=== PATIENT | male | born 1955 | race Caucasian/White ===

== ENCOUNTER 2025-06-25 11:59 | Emergency (ER) | payer MEDICARE, SELFPAY ==
[2025-06-25 12:09] VITALS: BP 169/95; PULSE 82; RESP 16; TEMP 36.7; O2SAT 98
--- OUTSIDE RECORDS SUMMARY | 2025-06-25 12:23 | XMS_ITS | Clinical Summary ---
Author Organization [facility] Address [address] [place] [address] Phone Care Team Providers Care Naturopathic Doctor Name Role Phone Parth Contreras MD Primary Care Provider [phone] Allergies No known active allergies Social History Tobacco Use Types Packs/Day Years Used Date Smoking Tobacco: Every Day Cigarettes Smokeless Tobacco: Never Alcohol Use Standard Drinks/Week Comments Yes 0 (1 standard drink = 0.6 oz pur e alcohol) daily beer drinker Sex and Gender Information Value Date Recorded Sex Assigned at Not on file Legal Sex Male 8:01 PM CDT Gender Identity Not on file Sexual Orientation Not on file Last Filed Vital Signs Vital Sign Reading Time Taken Comments Blood Pressure 141/92 12/14/2019 7:52 PM DIANETICIST Pulse 103 12/14/2019 7:52 PM DIANETICIST Temperature 35.9 C (96.7 F) 12/14/2019 5:03 PM DIANETICIST Respiratory Rate 18 12/14/2019 7:52 PM DIANETICIST Oxygen Saturation 97% 12/14/2019 7:52 PM DIANETICIST Inhaled Oxygen Concentration - - Weight 113.4 kg (250 lb) 12/14/2019 5:03 PM DIANETICIST Height 182.9 cm (6') 12/14/2019 5:03 PM DIANETICIST Body Mass Index 33.91 12/14/2019 5:03 PM DIANETICIST Plan of Treatment Health Maintenance Due Date Last Done Comments Hepatitis C Virus (HCV) Screening 1955 TdaP Immunization 1955 Cologuard 2001 Colonoscopy 2001 Colorectal Cancer Screening 2001 Immunochemical Fecal Occult Blood 2001 Pneumococcal Immunization (5 0+ years) (1 of 1 - PCV) 2006 Zoster Immunization (1 of 2) 2006 SARS-COV-2 Immunization ( - 2023-25 season) 2024 Influenza Immunization (#1) 2025 Respiratory Syncytial Virus (RSV) Immunization (Adult) (1 - 1-dose 75+ series) 2031 Hepatitis B Immunization Aged Out No longer eligible based on patient's age to complete this topic Human Papillomavirus (HPV) Immunization Aged Out No longer eligible b ased on patient's age to complete this topic Meningococcal Immunization (ACWY) Aged Out No longer eligible based on patient's age to complete this topic Rotavirus Immunization Aged Out No lo nger eligible based on patient's age to complete [place] [address] [facility] Care Teams Naturopathic Doctor Relationship Specialty Start Date End Date [place] [address] PCP - General Internal Medicine 12/14/19
--- OUTSIDE RECORDS SUMMARY | 2025-06-25 12:23 | XMS_ITS | Clinical Summary ---
Author Organization [facility] Address [address] [place] [address] Care Team Providers Care Rim Technician Name Role Phone Unavailable Primary Care Provider Unavailabl e Source Comments [facility],non-owned Affiliates and Associated Physician Practices is amultiple site organization consisting of ambulatory clinics and hospital sitesin [place], [place], [place] and [place]. This disclosure is being madepursuant to the Care Everywhere program and may not contain all information available regarding this patient. Last updated 18.[facility] Allergies No known active allergies Medications * Be aware that medications may not be up to date on this document. Alwaysverify current medications with the patient. albuterol HFA (VENTOLIN HFA) 108 (90 BASE) MCG/ACT inhaler Inhale 2 Puffs by mouth every 6 hours as needed 1 Inhaler 5 11/10/2016 Active predniSONE (DELTASONE) 20 MG tablet Take 1 Tab by mouth 2 times daily 14 Tab 11/10/2016 Active Active Problems No known active problems Social History Tobacco Use Types Packs/Day Years Used Date Smoking Tobacco: Every Day Sex and Gender Information Value Date Recorded Sex Assigned at Not on file Legal Sex Male 7:28 AM OPERATION AGENT Gender Identity Not on file Sexual Orientation Not on file Last Filed Vital Signs Vital Sign Reading Time Taken Comments Blood Pressure 142/86 11/10/2016 7:50 AM OPERATION AGENT Pulse 77 11/10/2016 7:50 AM OPERATION AGENT Temperature 37.1 C (98.8 F) 11/10/2016 7:50 AM OPERATION AGENT Respiratory Rate 17 11/10/2016 7:50 AM OPERATION AGENT Oxygen Saturation 96% 11/10/2016 7:50 AM OPERATION AGENT Inhaled Oxygen Concentration - - Weight 113.4 kg (250 lb) 11/10/2016 7:50 AM OPERATION AGENT Height 182.9 cm (6') 11/10/2016 7:50 AM OPERATION AGENT Body Mass Index 33.91 11/10/2016 7:50 AM OPERATION AGENT Plan of Treatment Health Maintenance Due Date Last Done Comments COLOGUARD (AGES 45-75) - COL ON CA SCREENING 1956 COLON MONITORING 1956 COLONOSCOPY - COLON CA SCREENING 1956 CT COLONOGRAPHY - COLON CA SCREENING 1956 Colorectal Cancer Screening 1956 FIT - COLON CA SCREENING 1956 FLEX SIG - COLON CA SCREENING 1956 LIPID TESTING 1956 HEPATITIS C SCREENING 09/05/1974 DTAP/TDAP/TD VACCINES (1 - Tdap) 1975 PNEUMOCOCCAL VACCINE 50+ (1 of 1 - PCV) 2006 ZOSTER VACCINE (1 of 2) 2006 AAA SCREENING 2021 COVID-19 VACCINE (1 - 2023-2 5 season) 2024 DEPRESSION SCREENING 11/01/2024 INFLUENZA VACCINE (#1) 2025 Respiratory Syncytial Virus (RSV) Vaccine Pt: or over 60 yrs (1 - 1-dose 75+ series) 2031 HEPATITIS B VACCINE Aged Out No longe r eligible based on patient's age to complete this topic HIB VACCINE Aged Out No longer eligi ble based on patient's age to complete this topic HPV VACCINE Aged Out No longer eligi ble based on patient's age to complete this topic MENINGOCOCCAL (Group B) VACC INE SHARED DECISION-MAKING Aged Out No longer eligibl e based on patient's age to complete this topic MENINGOCOCCAL GROUPS A/C/Y/W VACCINE Aged Out No longer eligible b ased on patient's age to complete this topic Insurance COUNTS [facility]
--- OUTSIDE RECORDS SUMMARY | 2025-06-25 12:23 | XMS_ITS | Encounter Summary ---
Author Organization [facility] Address [address] [place] [address] Phone Care Team Providers Care Food And Nutrition Teacher Name Role Phone Parth Contreras MD Primary Care Provider [phone] Encounter Details Date Type Department Care Team (Late st Contact Info) Description 01/21/2018 Orders Only [facility] Provider, MD [facility] [place] [address] Social History Tobacco Use Types Packs/Day Years Used Date Smoking Tobacco: Every Day Cigarettes Smokeless Tobacco: Never Alcohol Use Standard Drinks/Week Comments Yes 0 (1 standard drink = 0.6 oz pur e alcohol) Sex and Gender Information Value Date Recorded Sex Assigned at Not on file Legal Sex Male 11:20 AM CASER UP Gender Identity Not on file Sexual Orientation Not on file documented as of this encounter Plan of Treatment Not on file documented as of this encounter Procedures Procedure Name Priority Date/Time Associated Diagnosis Comments SURGICAL PATHOLOGY 01/21/2018 12 :00 AM CDT documented in this encounter Results * SURGICAL PATHOLOGY (01/21/2018 12:00 AM CDT) Narrative 01/21/2018 12:00 AM CDT Ordered by an unspecified provider. Historical Provider LAB PATHOLOGY ORDERABLES Final Result documented in this encounter Visit Diagnoses Not on filedocumented in this encounter Additional Health Concerns Infection Onset Date Last Indicated Resolved Time COVID: Suspected 2020 2020 09/11/2020 6:31 AM CASER UP Respiratory Infection (PHYLLIS), contact + droplet Comment:Automatically added due to negative COVID-19 result. 09/11/2020 09/11/2020 09/25/2020 3:0 6 AM CASER UP COVID: Suspected 01/30/2025 01/30/2025 01/30/2025 10:51 AM CDT documented as of this encounter Care Teams Food And Nutrition Teacher Relationship Specialty Start Date End Date Parth Contreras MD [address] [place] [address] PCP - General Family Medicine 01/11/18 documented as of this encounter
--- OUTSIDE RECORDS SUMMARY | 2025-06-25 12:23 | XMS_ITS | Encounter Summary ---
Author Organization [facility] Address [address] [place] [id number] Care Team Providers Care Tonsorial Artist Name Role Phone Parth Contreras MD Primary Care Provider [phone] Reason for Visit * Reason Onset Date Comments Insect Bite 06/25/2025 Encounter Details Date Type Department Care Team (Late st Contact Info) Description 06/25/2025 Telephone [facility] [address] [facility] [place] [address] Parth Contreras MD [address] [place] [address] Insect Bite Social History Tobacco Use Types Packs/Day Years Used Date Smoking Tobacco: Former Cigarettes Smokeless Tobacco: Never Comments:Quite smoking appro x 2 weeks ago Alcohol Use Standard Drinks/Week Comments Yes 0 (1 standard drink = 0.6 oz pur e alcohol) occassional AUDIT-C Answer Date Recorded Q1: How often do you have a drink containing alc ohol? 2-4 times a month 03/20/2025 Q2: How many drinks containi ng alcohol do you have on a typical day when you are drinking? 5 or 6 03/20/2025 Q3: How often do you have si x or more drinks on one occasion? Monthly 03/20/2025 PHQ-2 Answer Date Recorded PHQ-2 Total Score (If total score is 3 or more points, staff should administer the PHQ-9) 0 03/01/2025 Personal Safety Answer Date Recorded Have you ever been in or are you currently in a harmful physical or emotional relationship or is someone making you feel afraid or unsafe? Denies 03/20/2025 Sex and Gender Information Value Date Recorded Sex Assigned at Not on file Legal Sex Male 11:20 AM MRI SPECIAL PROCEDURES TECHNOLOGIST Gender Identity Not on file Sexual Orientation Not on file documented as of this encounter Miscellaneous Notes * Telephone Encounter - Queenie Young MA - 06/25/2025 11:46 AM CDT Pt reached out to office requesting epi-pen for several bee stings that occurred approximately 20 minutes ago. Pt denies experiencing symptoms during the call but mentioned history of swelling from bee sting on ankle in the past. Advised pt to seek immediate care instead of waiting for an epipen/ scheduled appt. Pt was agreeable and will head to closest urgent care. Allergies updated. documented in this encounter Plan of Treatment Not on file documented as of this encounter Visit Diagnoses Not on filedocumented in this encounter Care Teams Tonsorial Artist Relationship Specialty Start Date End Date Parth Contreras [place] [address] PCP - General Family Medicine 01/11/18 documented as of this encounter
--- OUTSIDE RECORDS SUMMARY | 2025-06-25 12:23 | XMS_ITS | Clinical Summary ---
Author Organization [facility] Address [address] [place] [address] Care Team Providers Care Fundraiser Name Role Phone Parth Contreras MD Primary Care Provider [phone] Allergies Active Allergy Reactions Criticality Noted Date Comments Venom-Honey Bee Swelling Medium 06/25/2025 Medications omega-3 fatty acids 500 mg capsule Take 1 capsule by mouth daily. Active cyanocobalamin (Vitamin B-12) 1,000 mcg tabletIndication s:Prevention of Vitamin B12 Deficiency Take 1 tablet (1,000 mcg total) by mouth daily Active blood glucose diagnostic (OneTouch Verio test strips) stripIndications :Type 2 diabetes mellitus with hyperglycemia, without long-term current use of insulin (HCC) TEST 4 TIMES A DAY AND NEEDED 100 strip 11 4 Active atorvastatin (LIPITOR) 20 mg tablet Take 1 tablet (20 mg total) by mouth daily 100 tablet 4 5 Active dapagliflozin propanediol (Farxiga) 10 mg tablet Take 1 tablet (10 mg total) by mouth daily 100 tablet 4 5 Active glipiZIDE (GLUCOTROL) 5 mg tabletIndication s:type 2 diabetes mellitus Take 1 tablet (5 mg total) by mouth daily 100 tablet 4 5 01/24/20 26 Active lisinopriL (PRINIVIL,ZESTRI L) 5 mg tablet Take 1 tablet (5 mg total) by mouth daily 100 tablet 4 5 07/22/20 25 Active meclizine (ANTIVERT) 25 mg tablet Take 1 tablet (25 mg total) by mouth 3 (three) times a day as needed for dizziness 30 tablet Active Additional Information Patient not taking.Informant: Self, Reported on 03/29/2025 acetaminophen (TYLENOL) 500 mg tablet Take 1 tablet (500 mg total) by mouth every 6 (six) hours as needed for pain Active ergocalciferol, vitamin D2, (VITAMIN D2 ORAL) Take 1 tablet by mouth as needed Active aspirin 81 mg enteric coated tablet Take 1 tablet (81 mg total) by mouth daily Active fluticasone propionate (FLONASE) 50 mcg/actuation nasal spray SPRAY 2 SPRAYS INTO EACH NOSTRIL EVERY DAY 48 mL 1 Active Active Problems Problem Noted Date Diagnosed Date Hoarseness of voice 03/01/2025 Assessment & Plan (03/01/2025 12:00 PM CDT): Discussed need for evaluation with ENT. Discussed need to rule out laryngeal cancer. Patient does have 40 pack year smoking history. Reports alcohol use about 2 times per month, denies drinking daily. Experiencing hoarseness for the past 2 weeks well as hemoptysis. Denies any fevers, chills, night sweats, difficulty swallowing or changes in appetite. No unintentional weight loss. Hemoptysis 03/01/2025 Assessment & Plan (03/01/2025 12:01 PM CDT): Patient reports cough, some dizziness and fatigue present for the past 1 month. Noted spitting up blood in the morning as well as voice changes in the last [address] of chest, to complete labs today as well. He is not having any chest pain, coughing or choking with meals. No fevers or chills. Viral URI with cough 01/30/2025 Assessment & Plan (01/30/2025 11:09 AM CDT): Cough improving. Discussed dizziness likely related to current URI. Reviewed the use of Flonase, Mucinex, Zyrtec, adequate p.o. hydration. Will hold off on treating for COPD exacerbation as he is improving and does not have increased dyspnea or increased sputum or purulent sputum. Discussed differentials with dizziness as well. No drops in orthostatic readings. No noted vertigo. Could consider dizziness related to initiation of Lexapro. With the acute onset associated with URI will treat URI sxs for now and also E scribe meclizine and monitor response. Red flags reviewed. He is in agreement with plan and states understanding. Safety reviewed. BMI 29.0-29.9,adult 01/30/2025 Assessment & Plan (03/01/2025 12:06 PM CDT): No unintentional weight loss. Assessment & Plan (01/30/2025 11:10 AM CDT): Continue with Pedialyte and water intake. Encounter for Medicare annual wellness exam 12/31 Assessment & Plan (01/23/2025 8:49 AM CDT): Visit preventive in nature. We reviewed medications, chronic conditions, risk factors, lifestyle recommendations. Reviewed immunization recommendations. Follow-up in 3 months for chronic conditions and 1 year for annual wellness. Screening PSA (prostate specific antigen) 2024 Assessment & Plan (01/23/2025 8:49 AM CDT): PSA ordered. Will plan accordingly once results are received. Mild episode of recurrent major depressive disor alonso 01/23/2025 Assessment & Plan (01/23/2025 8:50 AM CDT): He is receptive to medication treatment. Discussed options. Lexapro E scribed. Reviewed scheduling and side effects. Will monitor response. Red flags reviewed. Chronic bilateral low back pain without sciatica 01/23/2025 Assessment & Plan (01/23/2025 8:51 AM CDT): Reports stable with marijuana use. Will continue to monitor. Dermatitis 08/08/2024 Assessment & Plan (08/08/2024 1:27 PM CDT): Recommend daily Zyrtec. Will send in Medrol Dosepack. Recommend follow-up with Dermatology. I did place a referral today. Continue to try to identify triggers. He is in agreement with plan and states understanding. Cellulitis of face 07/27/2024 Assessment & Plan (07/27/2024 3:06 PM CDT): Will treat for what appears to be cellulitis behind the left ear. Area on the cheeks maybe more dermatitis. Ordered cephalexin. Be mindful of face washes, razors, etc. Reviewed red flags. RTC if worsening or not resolving. Fatigue 12/27/2023 Assessment & Plan (01/23/2025 8:49 AM CDT): Discussed differential diagnoses and multiple factors influencing fatigue including anemia, endocrinopathies, vitamin deficiencies, hormonal imbalance, inadequate sleep, poor diet, marijuana use, and lack of exercise. Encouraged healthy eating and regular physical activity. Lab workup ordered. Will plan accordingly once results are received. Assessment & Plan (12/27/2023 9:29 AM VAT OPERATOR): Discussed differential diagnoses and multiple factors influencing fatigue including anemia, endocrinopathies, vitamin deficiencies, hormonal imbalance, inadequate sleep, poor diet, and lack of exercise. Encouraged healthy eating and regular physical activity. Reviewed sleep hygiene. Will continue to monitor. Myalgia 12/27/2023 Encounter for screening colonoscopy 09/30/2023 Obstructive sleep apnea 06/24/2023 Assessment & Plan (03/01/2025 12:09 PM CDT): Untreated, does not tolerate CPAP. Assessment & Plan (12/27/2023 9:22 AM VAT OPERATOR): Does not wear cpap. Unable to tolerate. We discussed how untreated KALLIE can cause unrefreshing sleep and excessive daytime sleepiness, as well as how it contributes over the terminal computer operator to cardiovascular risk, recalcitrant hypertension, and stroke risk. Recommended we trial CPAP. Explained to patient that fatigue likely secondary to untreated sleep apnea. Offered referral to sleep Medicine, patient declines at this time. Assessment & Plan (06/24/2023 4:37 PM CDT): Patient states he is unable to tolerate CPAP We discussed how untreated KALLIE can cause unrefreshing sleep and excessive daytime sleepiness, as well as how it contributes over the terminal computer operator to cardiovascular risk, recalcitrant hypertension, and stroke risk. Type 2 diabetes mellitus wit hout complication, without long-term current use of insulin 11/03/2022 Assessment & Plan (01/30/2025 11:09 AM CDT): Stable. Continue Farxiga, glipizide. Continue monitoring blood glucose at home. Keep up the great work! Assessment & Plan (01/23/2025 8:48 AM CDT): Unsure what his readings are at home. Will continue Farxiga and glipizide. A1c ordered today. Will plan accordingly once results are received. Assessment & Plan (08/08/2024 1:27 PM CDT): Well controlled. Continue Farxiga and glipizide. Will continue to monitor. Red flags reviewed. Assessment & Plan (07/27/2024 3:05 PM CDT): Well controlled Farxiga, glipizide. No changes. Will continue to monitor. Assessment & Plan (06/26/2024 9:40 AM CDT): Lab Results Component Value Date HGBA1C 6.0 (H) 06/22/2024 HGBA1C 5.9 (H) 12/21/2023 HGBA1C 6.1 06/24/2023 Doing well with Glipizide and faxiga. No changes made today. Assessment & Plan (12/27/2023 9:16 AM VAT OPERATOR): Lab Results Component Value Date HGBA1C 5.9 (H) 12/21/2023 HGBA1C 6.1 06/24/2023 HGBA1C 6.0 (H) 03/24/2023 Well controlled. No change in current medication. Monofilament exam completed today, no loss of sensation. Assessment & Plan (06/24/2023 4:33 PM CDT): Improving/at goal. Lab Results Component Value Date HGBA1C 6.1 06/24/2023 HGBA1C 6.0 (H) 03/24/2023 HGBA1C 6.9 (H) 11/04/2022 Continue present management glipizide 5 mg and Farxiga 10 mg. Continue atorvastatin 20 mg daily and lisinopril 5 mg daily. Patient is checking blood sugar 1-2 times daily and monitoring diet. Current on eye exam. Will continue to monitor, labs ordered for patient to complete at six-month follow-up. Screening for colon cancer 02/19/2022 Assessment & Plan (06/26/2024 9:50 AM CDT): Needs to reschedule c-scope, apt in April was cancelled. Assessment & Plan (12/27/2023 9:15 AM VAT OPERATOR): Scheduled for c-scope in April Assessment & Plan (06/24/2023 4:36 PM CDT): No family history of colorectal cancer. Updated referral to GI today. Assessment & Plan (02/19/2022 5:25 PM CDT): No family history of colorectal cancer. Denies any changes in stool pattern, unintentional weight loss her blood in stool. Chronic pansinusitis 01/30/2018 Assessment & Plan (02/07/2018 8:47 AM CDT): Patient demonstrates severe obstructing bilateral nasal polyposis with pansinusitis demonstrated on physical examination and diagnostic CT imaging. Based on these findings patient will require to undergo image guided endoscopic sinus surgery with intranasal polypectomy. A thorough discussion took place today with the patient pertaining to my findings and treatment recommendations. Patient was provided with educational material pertaining to the medical and surgical management of sinus and polyp disease. All questions were answered to what appeared to be patient's understanding and satisfaction. After the procedure was explained in full the potential risk, complications, benefits and alternatives patient would like to proceed. Patient will be scheduled in a timely fashion. Assessment & Plan (01/30/2018 8:22 AM CDT): Patient is noted on today's exam to have extensive bilateral obstructing intranasal polyposis. A biopsy was obtained of the left nasal polyp to look for Schneiderian polyposis. A CT scan of the paranasal sinuses will be obtained to determine the extent of the disease process. Patient will follow back afterwards to discuss the results and further treatment recommendations. Nasal polyposis 01/30/2018 Assessment & Plan (02/07/2018 8:47 AM CDT): Patient demonstrated minimal improvement after tapering dose of systemic steroids. Today's examination reveals near complete obstruction of both right left nasal passages by polyp disease. Assessment & Plan (01/30/2018 8:24 AM CDT): Patient is noted on today's exam to have extensive bilateral obstructing nasal polyp disease. A biopsies was taken of the left nasal polyp. There is no visible evidence of bony expansion of the midface or nasal dorsal widening. Tobacco abuse disorder 01/30/2018 Assessment & Plan (03/01/2025 12:06 PM CDT): Patient with a 40 pack year history, quit smoking 1 month ago. Assessment & Plan (01/23/2025 8:47 AM CDT): Highly encouraged cessation. Assessment & Plan (07/27/2024 3:05 PM CDT): Highly encouraged cessation. Pre contemplative. Assessment & Plan (12/27/2023 9:04 AM VAT OPERATOR): Will continue to recommend cessation at each visit. Assessment & Plan (06/24/2023 4:33 PM CDT): Encourage complete cessation. Discussed chest ct for lung cancer screening. Patient will consider in the future. Assessment & Plan (01/30/2018 8:25 AM CDT): Patient was made aware that his extensive history of tobacco use can contribute to the progression of his paranasal sinus disease process. Patient was advised to seek counseling for tobacco cessation. Recommend nicotine replacement therapy Hypertension associated with diabetes 03/17/2014 Overview (02/04/2017): BENIGN HYPERTENSION Assessment & Plan (01/30/2025 11:01 AM CDT): Stable. No drop in orthostatic readings. Continue lisinopril. Will continue to monitor. Assessment & Plan (01/23/2025 8:47 AM CDT): Slightly high. Admits he has not taken his lisinopril yet today. Not monitoring blood pressure at home. Will continue with lisinopril at this time. Encouraged him to stop by the clinic in 2 weeks to have nurse check for blood pressure. He is agreeable. Assessment & Plan (07/27/2024 3:05 PM CDT): Well controlled lisinopril. No changes. Will continue to monitor. Assessment & Plan (06/26/2024 9:44 AM CDT): Blood pressure is well controlled. Continues lisinopril 5 mg daily w/diagnosis of T2DM. Encourage heart healthy diet. Assessment & Plan (12/27/2023 9:05 AM VAT OPERATOR): Blood pressure is well controlled. Assessment & Plan (06/24/2023 4:34 PM CDT): Condition is stable Discussed/ordered labs, encouraged healthy, low carbohydrate lifestyle and at least 150min/week of exercise, continue on lisinopril Hyperlipidemia associated with type 2 diabetes jose merrill 03/17/2014 Overview (02/04/2017): HYPERLIPIDEMIA NEC/NOS Assessment & Plan (01/23/2025 8:48 AM CDT): Compliant with the atorvastatin. Will check lipid panel and plan accordingly. Encourage heart healthy diet. Assessment & Plan (06/26/2024 9:43 AM CDT): Stable; continue atorvastatin 20 mg daily. Assessment & Plan (12/27/2023 9:05 AM VAT OPERATOR): Patient is taking atorvastatin 20 mg daily prescribed, denies any medication side effects. Will check labs today and make additional recommendations if needed. Assessment & Plan (06/24/2023 4:36 PM CDT): LDL = 80, reviewed ASCVD risk score with patient and modifiable changes such as smoking cessation. Continue atorvastatin 20 mg daily, patient is taking medication as prescribed. Resolved Problems Problem Noted Date Diagnosed Date Resolved Date Lipid screening 02/19/2022 03/22/2023 Assessment & Plan (02/19/2022 5:24 PM CDT): Will check fasting labs and notify patient of results as soon as they are received. Acute sinusitis 02/19/2022 03/22/2023 Assessment & Plan (02/19/2022 5:24 PM CDT): Patient completes medications as prescribed. Reviewed medication side effects and scheduling, reviewed administration of Flonase nasal spray. Follow-up in 2 weeks if no improvement or sooner if experiencing any new or worsening symptoms. Class 1 obesity due to exces s calories without serious comorbidity with body mass index (BMI) of 31.0 to 31.9 in adult 02/19/2022 Assessment & Plan (02/19/2022 5:23 PM CDT): Discussed healthy diet and importance of regular physical activity. Atopic rhinitis 03/17/2014 01/12/2018 Overview (02/04/2017): ALLERGIC RHINITIS NOS Tobacco dependence syndrome 03/17/2014 03/22/2023 Overview (02/04/2017): TOBACCO USE DISORDER Assessment & Plan (02/19/2022 5:25 PM CDT): Pre contemplative: Encouraged smoking cessation. Pure hypercholesterolemia 03/17/2014 Overview (02/04/2017): PURE HYPERCHOLESTEROLEM Impaired fasting glucose 03/17/2014 Overview (02/04/2017): IMPAIRED FASTING GLUCOSE Encounters Date Type Department Care Team Description 06/25/2025 Telephone [facility] [address] [place] [address] Parth Contreras MD Insect Bite 03/30/2025 Orders Only [facility] [address] [place] [address] Parth Contreras MD Lung nodule (Primary Dx) 03/29/2025 10:00 AM CDT Office Visit [facility]) - [facility] Medicine ENT [id number] [facility] Medical Office Building [address] [place] [address] Agustina Thakkar MD Vocal cord polyp (Primary Dx); Dysphonia from Last 3 Months Immunizations Immunization Administration Dates Next Due Influenza, Split 11/24/2010 Influenza, Trivalent, IM (MDV) 08/26/2009 Influenza, Unspecified 01/30/2025(Deferr ed: Patient Refused),08/08/2024(Deferred: Patient Refused),08/01/2024(Deferred: Patient Refused),07/27/2024(Deferred: Patient Refused),06/26/2024(Deferred: Patient Refused),12/27/2023(Deferred: Patient Refused),08/01/2023(Deferred: Patient Refused),08/01/2023(Deferred: Patient Refused),08/01/2023(Deferred: Patient Refused),08/01/2023(Deferred: Patient Refused),11/03/2022(Deferred: Patient Refused),08/26/2022(Deferred: Patient Refused),08/01/2022(Deferred: Patient Refused),08/01/2022(Deferred: Patient Refused),08/01/2022(Deferred: Patient Refused),07/16/2022(Deferred: Patient Refused),11/01/2021(Deferred: Patient Refused),08/01/2021(Deferred: Patient Refused),08/01/2021(Deferred: Patient Refused),07/02/2021(Deferred: Patient Refused),11/01/2020(Deferred: Patient Refused),01/12/2018(Deferred: Patient Refused) Pneumococcal Conjugate Pcv20 08/08/2024( Deferred: Patient Refused),07/27/2024(Deferred: Patient Refused) Tdap 11/24/2010 Surgical History Surgery Date Site/Laterality Comments OTHER SURGICAL HISTORY 11/01/1972 - 10/31/1973 right shoulder injury: surgical repair with pinning TONSILLECTOMY as a kid, adnoids and tonsil Medical History Medical History Date Comments Tonsillitis tonsillitis Hx Other Medical right shoulder injury Nasal polyp Sleep apnea Sinus disease Hoarseness Hemoptysis Type 2 diabetes mellitus Family History Medical History Relation Name Comments Cancer Father Omid Coronary artery disease Father Omid Blumo nary artery disease, premature; Diabetes Father Omid Diabetes mellit us; Diabetes type II Father Omid Diabetes -T ype II; Heart disease Father Omid Heart disease; Kidney cancer Father Omid Cancer -renal; Stroke Father Omid stroke; Allergies Mother Sudha Hypertension Mother Sudha Hypertension; Breast cancer Sister 1 Elizabeth Coronary artery disease Sister 1 Elizabeth Migdalia nary artery disease, premature; Heart disease Sister 1 Elizabeth Heart failure Sister 1 Elizabeth Breast cancer Sister 2 Samantha Diabetes Sister 2 Samantha Diabetes type II Sister 2 Samantha Diabetes -T ype II; No Known Problems Son 1 Judson No Known Problems Son 2 Murtaza Relation Name Status Comments Father Omid (Age 66) Mother Sudha Alive Sister 1 Elizabeth Alive Sister 2 Samantha Alive Son 1 Judson Alive Son 2 Murtaza Alive Social History Tobacco Use Types Packs/Day Years Used Date Smoking Tobacco: Former Cigarettes Smokeless Tobacco: Never Tobacco Cessation:Counseling Given: Not Answered Comments:Quite smoking approx 2 weeks ago Alcohol Use Standard Drinks/Week [...] on file Legal Sex Male 11:20 AM VAT OPERATOR Gender Identity Not on file Sexual Orientation Not on file Obstetrics History Last Filed Vital Signs Vital Sign Reading Time Taken Comments Blood Pressure 157/94 03/20/2025 2:25 PM CDT Pulse 70 03/20/2025 2:25 PM CDT Temperature 36.6 C (97.9 F) 03/20/2025 2:20 PM CDT Respiratory Rate 18 03/20/2025 2:25 PM CDT Oxygen Saturation 93% 03/20/2025 2:25 PM CDT Inhaled Oxygen Concentration - - Weight 102.1 kg (225 lb) 03/20/2025 11:05 AM CDT Height 182.9 cm (6') 03/20/2025 11:05 AM CDT Body Mass Index 30.52 03/20/2025 11:05 AM CDT Plan of Treatment Health Maintenance Due Date Last Done Comments Colon Cancer Screening-Colonoscopy 1955 Hepatitis C Screening 1955 Hepatitis B Screening 1974 Pneumococcal vaccine 65+ (1 of 2 - PCV) 1975 Zoster Vaccine (1 of 2) 2006 DTaP/Tdap/Td Vaccine (2 - Td or Tdap) 11/24/2020 11/24/2010 Abdominal Aortic Aneurysm (A AA) Screen 2021 Albumin Creatinine Ratio, Urine 06/22/2025 , 03/22/2023 Influenza Vaccine (#1) 2025 11/24/2010, 2008 Hemoglobin A1C 07/26/2025 01/23/2025, 06/02, 12/21/2023, Additional history exists Foot Exam 01/23/2026 01/23/2025, 12/03, 08/26/2022 Lipid Panel 01/23/2026 01/23/2025, 06/02, 12/21/2023, Additional history exists Well Visit 65+ 01/23/2026 01/23/2025, 03/22/2023 Depression Screening 03/01/2026 03/01/2025, 01/30/2025, 01/23/2025, Additional history exists eGFR 03/05/2026 03/05/2025, 12/31, 06/22/2024, Additional history exists Fall Risk Assessment 03/20/2026 03/20/2025, 03/01/2025, 01/23/2025, Additional history exists Dilated Eye Exam 04/18/2026 04/18/2024, 03/23/2023 Prostate Cancer Screening-PSA 01/23/2027, 11/04/2022, 09/23/2020 Colon Cancer Screening-FIT Discontinued 10/20, 08/31/2019, 08/31/2019 Medical Devices Implanted Type Area Band Booker Device Identifier Shelf Expiration Date Model / Serial / Lot Stent Nasal Propel Mometasone Furoate 370 Mcg - [id number] Implanted:Qty: 1 on 02/10/2018 by Jose June DO at [facility] Right: Nose Intersect Ent 10/13/2019 [id number] / / [id number] Stent Nasal Propel Mometasone Furoate 370 Mcg - [id number] Implanted:Qty: 1 on 02/10/2018 by Jose June DO at [facility] Left: Nose Intersect Ent 10/13/2019 [id number] / / [id number] Procedures Procedure Name Priority Date/Time Associated Diagnosis Comments EGFR Routine 03/05/2025 8:51 AM CDT Hemoptysis HEMOGLOBIN A1C Routine 01/23/2025 9:19 AM CDT Type 2 diabetes mellitus without complication, without long-term current use of insulin (HCC) LIPID PANEL Routine 01/23/2025 9:19 AM CDT Hyperlipidemia associated with type 2 diabetes mellitus (HCC) PSA SCREEN Routine 01/23/2025 9:19 AM CDT Screening PSA (prostate specific antigen) ALBUMIN CREATININE RATIO, URINE Routine 06/22/2024 9:11 AM CDT Type 2 diabetes mellitus with hyperglycemia, without long-term current use of insulin (HCC) Hyperlipidemia associated with type 2 diabetes mellitus (HCC) Hypertension associated with diabetes (HCC) HM DIABETES EYE EXAM Routine 04/18/2024 1:43 PM CDT OCCULT BLOOD, FECAL (FIT) Routine 10/20/2020 from Last 3 Months or Most Recently Relevant to Health Maintenance Results * eGFR (03/05/2025 8:51 AM CDT) eGFR >90 >=60 mL/min/1. 73 m2 Comment: Interpretive Data Reference Interval Normal >/= 90 mL/min/1.73m2 Mildly decreased* 60 - 89 mL/min/1.73m2 Mildly to moderately decreased 45 - 59 mL/min/1.73m2 Moderately to severely decreased 30 - 44 mL/min/1.73m2 Severely decreased 15 - 29 mL/min/1.73m2 Kidney Failure < 15 mL/min/1.73m2 *Relative to young adult level Estimated glomerular filtration rate is determined by the 2020 CKD-EPI equation recommended by the National Kidney Foundation (A Unifying Approach to GFR Estimation: Recommendations of the NKF-ASK Task Force on Reassessing the Inclusion of Race in Diagnosing Kidney Disease, JASN 2020). The CKD-EPI equation should not be used for patients with unstable renal function and has not been validated in children and those over 70. Current interpretive data was last reviewed 2021. Testing performed by: [facility], [address] [place] [address], [place]., [address] Blood 03/05/2025 8:51 AM CDT 03/05/2025 5:59 PM CDT Maureen Riojas NP LAB BLOOD ORDERABLES Final Result [facility] [facility] [place] [address] * PSA screen (01/23/2025 9:19 AM CDT) PSA-Total 2.51 <=5.40 ng/mL Comment: Interpretive Data AGE SEX REFERENCE INTERVAL 0 minutes-150 years Female None 0 minutes-49 years Male None 50-59 years Male 0-3.90 60-69 years Male 0-5.40 70-79 years Male 0-6.20 80-150 years Male 0-6.20 The [employer] PSA Total assay procedure was used. Results from different manufacturers or methods may not be comparable. Serial testing should be performed using the same method. Current interpretive data last revised 22. Testing performed by: [facility], [address] [place] [address]., [id number] Blood 01/23/2025 9:19 AM CDT 01/23/2025 12:16 PM CDT Tia Floyd NP LAB BLOOD ORDERABLES Final Result [facility] ([place]) 1 [facility] [place] [address] * (ABNORMAL) Hemoglobin A1c (01/23/2025 9:19 AM CDT) Pathologist [facility] Hgb A1C 6.2(H) 4.0 - 5.6 % Comment:Testing performed by : [address] [address] Estimated Average Glucose 131 mg/dL [facility] ([place]) Comment: The ADA recommends reporting an estimated Average Glucose (eAG) with all Hemoglobin A1c results using the equation derived from a study of 507 normal and diabetic adults. Minority populations were underrepresented and children were not included. (Diabetes Care 31:6280-4130, 2008). The eAG is not equivalent to a fasting glucose. Testing performed by: [address] [address] Blood 01/23/2025 9:19 AM CDT 01/23/2025 12:16 PM CDT Tia W. Floyd [employer] [employer] TARGETING TECHNICIAN LAB BLOOD ORDERABLES Final Result IVELISSE MEADOWS (RENEA) 1 [facility] [place] [address] * (ABNORMAL) Lipid panel (01/23/2025 9:19 AM CDT) Cholesterol 123 30 - 199 mg/dL Comment: Interpretive Data Ages < or = 19 years Acceptable: <170 mg/dL Borderline high: 170-199 mg/dL High: >or= 200 mg/dL Ages > or = 20 years Desirable: <200 mg/dL Borderline high: 200-239 mg/dL High: >or= 240 mg/dL Literature References: 1. Expert Panel on Integrated Guidelines for Cardiovascular Health and Risk Reduction in Children and Adolescents. Pediatrics 2011;128:S213 2. NCEP Expert Panel. Circulation 2004;110:227 Current Interpretive Data was last revised on 2018. Testing performed by: [address] [address] Triglycerides 85 <=149 mg/dL IVELISSE [facility] (RENEA) Comment: Interpretive Data Ages < or = 9 years Acceptable: <75 mg/dL Borderline high: 75-99 mg/dL High: >or= 100 mg/dL Ages 10 to 20 years Acceptable: <90 mg/dL Borderline high: 90-129 mg/dL High: >or= 130 mg/dL Ages > or = 20 years Desirable: <150 mg/dL Borderline high: 150-199 mg/dL High: 200-499 mg/dL Very high: >or= 499 mg/dL Literature References: 1. Expert Panel on Integrated Guidelines for Cardiovascular Health and Risk Reduction in Children and Adolescents. Pediatrics 2011;128:S213 2. NCEP Expert Panel. Circulation 2004;110:227 Current Interpretive Data was last revised on 2018. Testing performed by: [facility], [address] [place] [address]., [id number] HDL 35(L) >=40 mg/dL IVELISSE AM [facility] (RENEA) Comment: Interpretive Data Ages < or = 19 years Acceptable: >45 mg/dL Borderline low: 40-45 mg/dL Low: <40 mg/dL Ages > or = 20 years Desirable: >or= 60 mg/dL Low: <40 mg/dL Literature References: 1. Expert Panel on Integrated Guidelines for Cardiovascular Health and Risk Reduction in Children and Adolescents. Pediatrics 2011;128:S213 2. NCEP Expert Panel. Circulation 2004;110:227 Current Interpretive Data was last revised on 2018. Testing performed by: [facility], [address] [place] [address]., [id number] LDL, calculated 71 <=129 mg/dL IVELISSE MEADOWS (RENEA) Comment: Interpretive Data Ages < or = 19 years Acceptable: <110 mg/dL Borderline high: 110-129 mg/dL High: >or= 130 mg/dL Ages > or = 20 years Optimal: <100 mg/dL Near optimal: 100-129 mg/dL Borderline high: 130-159 mg/dL High: >160 mg/dL Calculated using the Maico LDL-C estimating equation. This equation was implemented on 2024. Prior to this date LDL-C was estimated using the Friedewald equation. Literature References: 1. Expert Panel on Integrated Guidelines for Cardiovascular Health and Risk Reduction in Children and Adolescents. Pediatrics 2011;128:S213 2. NCEP Expert Panel. Circulation 2004;110:227 3. Maico Silverman et al. WINSTON Cardiol. 2020 March 01;5(5):540-548. doi: 10.1001/[email or web address].2020.0013 Current Interpretive Data was last revised on 2024. Testing performed by: [facility], [address] [place] [address]., [id number] Non-HDL Cholesterol 88 mg/dL IVELISSE MEADOWS (RENEA) Comment: Interpretive Data Ages < or = 19 years Acceptable: <120 mg/dL Borderline high: 120-144 mg/dL High: >145 mg/dL Ages > or = 20 years When triglycerides are >200 mg/dL, Non-HDL cholesterol is a secondary target of therapy with treatment goals that are 30 mg/dL greater than the LDL cholesterol target. Literature References: 1. Expert Panel on Integrated Guidelines for Cardiovascular Health and Risk Reduction in Children and Adolescents. Pediatrics 2011;128:S213 2. NCEP Expert Panel. Circulation 2004;110:227 Current Interpretive Data was last revised on 2018. Testing performed by: [facility], [address] [place] [address]., [id number] Chol/HDL ratio 4 GIRMA MEADOWS (RENEA) Comment:Testing performed by : [facility], [address] [place] [address]., [id number] Blood 01/23/2025 9:19 AM CDT 01/23/2025 12:16 PM CDT Tia Floyd FIELD ARTILLERY TARGETING TECHNICIAN LAB BLOOD ORDERABLES Final Result Performing Organization Address [facility]/ZIP Co de Phone Number IVELISSE MEADOWS (RENEA) 1 [facility] [place] [address] * Albumin Creatinine Ratio, Urine (06/22/2024 9:11 AM CDT) Albumin Ur 29.5 mg/L Comment: Interpretive Data No reference range established. Current interpretive data was last revised 2019. Testing performed by: [facility], [address] [place] [address]., [id number] Creatinine Ur 128.8 mg/dL IVELISSE MEADOWS (RENEA) Comment: Interpretive Data No reference range established. Current interpretive data was last revised 2019. Testing performed by: [facility], [address] [place] [address]., [id number] Albumin Creatinine Ratio, Ur 23 1 - 29 mg/g IVELISSE MEADOWS (RENEA) Comment:Testing performed by : [facility], [address] [place] [address]., [id number] Urine 06/22/2024 9:11 AM CDT 06/22/2024 12:24 PM CDT Maureen Riojas FIELD ARTILLERY TARGETING TECHNICIAN LAB URINE ORDERABLES Final Result Performing Organization Address [facility] Co de Phone Number IVELISSE MEADOWS (RENEA) 1 [facility] [place] [address] * DIABETES EYE EXAM (04/18/2024 1:43 PM CDT) Historical Provider HEALTH MAINTENANCE Edited Result - Final * Occult Blood, Fecal (FIT) (10/20/2020) Stool 10/20/2020 us Historical Provider MD LAB BODY FLUIDS AND STOOL S ORDERABLES Final Result EXTERNAL LAB from Last 3 Months or Most Recently Relevant to Health Maintenance Insurance U[employer] MEDICARE ADVANTAGE UHC MEDICARE ADVANTAGE [facility] MEDICARE ADVANTAGE Care Teams Fundraiser Relationship Specialty Start Date End Date Parth Contreras MD [id number] [place] [id number] PCP - General Family Medicine 01/11/18
--- NOTE | 2025-06-25 12:26 | ED_ITS ---
HPI - Skin/Abscess/Foreign Bdy General Chief complaint: Skin/Abscess/Foreign Body Stated complaint: Bee Sting Time Seen by Provider: 06/25/25 12:26 Source: patient Mode of arrival: ambulatory Limitations: no limitations History of Present Illness HPI narrative: 69 y/o male presented for c/o bee stings. 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 denies any itching, sob, lip, t ongue, or throat swelling, wheezing, n/v, cramping or dizziness. Has not taken anything for symptoms. Says he was stung one week ago on the ankle, which resulted in ankle swelling. Pt attempted to get an Epi pen as advised by pharmacist, but could not be seen by PCP today. Related Data Home Medications ?Medication ?Instructions ?Recorded ?Confirmed ?Last Taken ?Type atorvastatin 20 mg tablet mg 06/25/25 Unknown History dapagliflozin propanediol 10 mg mg 06/25/25 Unknown H istory tablet (Farxiga) escitalopram oxalate 10 mg tablet mg 06/25/25 Unknown History glipizide 5 mg tablet mg 06/25/25 Unknown History lisinopril 5 mg tablet mg 06/25/25 Unknown History Allergies Allergy/AdvReac Type Severity Reaction Status Date / Time bee venom protein (honey bee) Allergy Unknown Swelling Verified 06/25/25 12:17 Review of Systems Review of Systems: CONSTITUTIONAL: Denies body aches, fever, chills, or sweats. EYES: Denies visual changes, redness, or discharge. ENT: Denies rhinorrhea, congestion CARDIOVASCULAR: Denies chest pain, palpitations, or edema. RESPIRATORY: Denies cough or dyspnea. GASTROINTESTINAL: Denies abdominal pain, nausea, vomiting, or diarrhea. SKIN: reports insect stings on arms/legs MUSCULOSKELETAL: Denies back pain, joint pain, or myalgia. NEUROLOGIC: Denies headache, numbness, tingling, or weakness. PMFSH Comments At time of signature, I have reviewed and agree with nursing past medical, surgical, social and family history unless otherwise noted. Please see nursing chart for further information. There is no relevant family history pertinent to the presenting complaint Exam Narrative: GENERAL: Well-appearing HEAD: Normocephalic, atraumatic. EYES: conjunctivae clear, and EOMI. ENT: Mucous membranes moist. Oropharynx without edema, erythema or lesions. NECK: Supple. No lymphadenopathy CHEST: Clear to auscultation. Speaks full sentences no distress HEART: Regular rate and rhythm. SKIN: Warm, dry. Few scattered puncture sites to arms and legs possible insect sting as reported, no surrounding erythema or swelling. NEURO: Alert and oriented x3. Course Course Emergency Course: Patient is aware of diagnosis, understands and agrees to treatment plan. Anticipatory guidance given. Patient agrees to follow-up as directed and is aware of reasons to seek care at the emergency department. Portions of this record may have been created with voice recognition software Level of Care: Express Care Visit Vital Signs Vital signs: Vital Signs Temperature 98.1 F 06/25/25 12:09 Pulse Rate 82 06/25/25 12:09 Respiratory Rate 16 06/25/25 12:09 Blood Pressure 169/95 H 06/25/25 12:09 Pulse Oximetry 98 06/25/25 12:09 Oxygen Delivery Room Air 06/25/25 12:09 Temperature 98.1 F 06/25/25 12:09 Pulse Rate 82 06/25/25 12:09 Respiratory Rate 16 06/25/25 12:09 Blood Pressure 169/95 H 06/25/25 12:09 Pulse Oximetry 98 06/25/25 12:09 Oxygen Delivery Room Air 06/25/25 12:09 Reviewed MDM - Skin/Abscess/Foreign Bdy MDM Narrative Medical decision making narrative: 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 Discussed physical exam findings, Reviewed the meds to be given in clinic. IM solumedrol, pepcid and benadryl. Pt is well appearing. Advised supportive measures and signs/symptoms to go to the ER. Pt is appropriate for outpt treatment and f/u. Instructed patient to go to nearest ER immediately for any worsening symptoms including but not limited to: fever, spreading rash, pain, sore throat, headache, dizziness, chest pain, trouble breathing, or any symptoms concerning to the patient. Differential Diagnosis Differential diagnosis: Likely abscess of skin or subcutaneous tissue, viral exanthem, dermatophytosis, urticaria, herpes zoster, cellulitis, eczema, insect bites, impetigo and contact dermatitis Discharge Plan Discharge Clinical Impression: Insect bites Patient Disposition: Home Condition: Stable Instructions: Antibiotic Form, Insect Bite or Sting (ED) Additional Instructions: Take Benadryl every 8 hours as needed for itching, or you can take zyrtec according to package directions Cool compresses to the sites of itching, avoid hot water. Avoid scratching to reduce the risk of infection Follow up with your primary care provider as needed in 1 week Go to the ER for worsening symptoms or concerns (lip, tongue, throat swelling/itching, trouble breathing etc) Patient Language: Mohawk Prescriptions: No Action atorvastatin 20 mg tablet lisinopril 5 mg tablet glipizide 5 mg tablet escitalopram oxalate 10 mg tablet dapagliflozin propanediol [Farxiga] 10 mg tablet Follow-up/Referrals: Harms,Parth Sage M.D. [Primary Care Provider] Time of Disposition: 12:54
[2025-06-25] MEDS: FAMOTIDINE 20 MG TABLET 40 MG PO (12:30)
[2025-06-25] MEDS: diphenhydrAMINE HCl CAP 25 MG CAPSULE PO (12:30)
== END 2025-06-25 12:56 | disposition home or self-care (01) ==
PROVIDERS: Emergency Provider Nurse Practitioner Family; PCP Family Medicine
DX: T63.441A Toxic effect of venom of bees, accidental (unintentional), initial encounter (principal); I10 Essential (primary) hypertension; E11.9 Type 2 diabetes mellitus without complications; Z79.84 Long term (current) use of oral hypoglycemic drugs
CPT/HCPCS: 96372; 99203; A9270; G0463; J2919